=== PATIENT | female | born 1970 | race American Indian/Alaskan Native ===

== ENCOUNTER 2016-06-01 08:10 | Outpatient (CLI) | payer MEDICARE ==
--- NOTE | 2016-06-01 09:01 | Fluoroscopy Report ---
Modified barium swallow: Fluoroscopy was performed with the patient in the sitting lateral position. Multiple consistencies of opaque material within it to the patient by speech therapy. The patient demonstrated some delay in swallowing the swallowing mechanism otherwise appear unremarkable. No aspiration or penetration identified.
== END 2016-06-01 08:11 | disposition home or self-care (01) ==
LOC: PT 08:10
PROVIDERS: ATTEND Otolaryngology
DX: R13.12 Dysphagia, oropharyngeal phase (principal)
CPT/HCPCS: 74230; 92611; G8996; G8997; G8998

== ENCOUNTER 2017-11-29 14:49 | Outpatient (CLI) | payer OTHER | END 2017-11-29 14:50 | disposition home or self-care (01) | LOC: LABHHL 14:49 | PROVIDERS: ATTEND Specialist | DX: N60.32 Fibrosclerosis of left breast (principal) | CPT/HCPCS: 88305 ==